=== PATIENT | male | born 1935 | race Two or more races ===

== ENCOUNTER 2020-06-15 13:31 | Outpatient (CLI) | payer OTHER | END 2020-06-15 17:47 | disposition home or self-care (01) | LOC: OFIC 805 13:31 | PROVIDERS: ATTEND Otolaryngology Otology & Neurotology | DX: R04.2 Hemoptysis (principal); R13.19 Other dysphagia; R13.14 Dysphagia, pharyngoesophageal phase ==

== ENCOUNTER 2020-07-13 13:16 | Outpatient (CLI) | payer OTHER | END 2020-07-13 14:00 | disposition home or self-care (01) | LOC: OFIC 805 13:16 | PROVIDERS: ATTEND Otolaryngology Otology & Neurotology | DX: R13.19 Other dysphagia (principal); R13.14 Dysphagia, pharyngoesophageal phase ==